=== PATIENT | female | born 1945 | race Two or more races ===

== ENCOUNTER 2023-12-20 13:25 | Emergency (ER) | payer MEDICARE ==
[~2023-12-20] VITALS: Ht 152.4 cm; Wt 59.0 kg
[2023-12-20] MEDS: ACETAMINOPHEN 500 MG TABLET PO ONE (15:05)
[2023-12-20] MEDS: PERTUSS(ACELL),DIPH,TET/PF 0.5 ML SYRINGE [ADULT] IM. ONE (15:06)
[2023-12-20] MEDS: BACITRACIN 0.9 GM PACKET OINTMENT TP ONE (15:07)
[2023-12-20] MEDS ORDERED: ACET-66 PO (19:46)
== END 2023-12-20 19:57 | disposition home or self-care (01) ==
LOC: EMS 13:25
DX: S60.221A Contusion of right hand, initial encounter (principal); S00.33XA Contusion of nose, initial encounter; Z88.8 Allergy status to other drugs, medicaments and biological substances; Z85.07 Personal history of malignant neoplasm of pancreas; W01.0XXA Fall on same level from slipping, tripping and stumbling without subsequent striking against object, initial encounter; Y93.01 Activity, walking, marching and hiking; Y92.89 Other specified places as the place of occurrence of the external cause; Y99.8 Other external cause status
CPT/HCPCS: 70160; 90471; 90715; 99284